=== PATIENT | female | born 1985 | race Caucasian/White ===

== ENCOUNTER 2020-01-11 17:05 | Emergency (ER) | payer OTHER ==
[~2020-01-11] VITALS: Ht 162.6 cm; Wt 60.3 kg
[2020-01-11 17:09] VITALS: BP 124/77; Ht 162.6 cm; Wt 60.3 kg
== END 2020-01-11 17:52 | disposition left against medical advice (07) ==
LOC: ED 17:05
DX: R07.89 Other chest pain (principal); Z88.2 Allergy status to sulfonamides
CPT/HCPCS: 82962

== ENCOUNTER 2020-01-14 22:13 | Emergency (ER) | payer OTHER ==
[~2020-01-14] VITALS: Ht 162.6 cm; Wt 59.0 kg
[2020-01-14 22:17] VITALS: Ht 162.6 cm; Wt 59.0 kg
[2020-01-14 23:00] VITALS: BP 112/83
== END 2020-01-14 23:00 | disposition other institution (70) ==
LOC: ED 22:13
DX: Z02.89 Encounter for other administrative examinations (principal)

== ENCOUNTER 2020-01-20 20:53 | Emergency (ER) | payer OTHER ==
[~2020-01-20] VITALS: Ht 162.6 cm; Wt 61.2 kg
[2020-01-20 20:56] VITALS: BP 123/80; Ht 162.6 cm; Wt 61.2 kg
== END 2020-01-20 21:46 | disposition left against medical advice (07) ==
LOC: ED 20:53
DX: Z53.21 Procedure and treatment not carried out due to patient leaving prior to being seen by health care provider (principal)

== ENCOUNTER 2020-01-22 13:16 | Emergency (ER) | payer OTHER ==
[~2020-01-22] VITALS: Ht 165.1 cm; Wt 61.2 kg
[2020-01-22 13:45] VITALS: Ht 165.1 cm; Wt 61.2 kg
[2020-01-22 14:08] VITALS: BP 134/64
[2020-01-22 14:22] LABS: BASOPHIL % 0.1 % (0-2); PLATELET COUNT 290 x10^3mcL (130-400); RED CELL DISTRIBUTION WIDTH 13.3 % (11.5-14.5)
[2020-01-22 14:34] LABS: CALCIUM 8.9 mg/dL (8.5-10.1); CARBON DIOXIDE 30.1 mmol/L (21-32); CHLORIDE SERUM 106 mmol/L (98-107); CREATININE SERUM 0.7 mg/dL (0.6-1.0); GFR1 > 60 mL/min; GLUCOSE SERUM 68 mg/dL (74-106); POTASSIUM SERUM 4.2 mmol/L (3.5-5.1); SODIUM SERUM 139 mmol/L (136-145)
[2020-01-22 14:38] LABS: ALKALINE PHOSPHATASE 57 U/L (46-116); ALT/SGPT 14 U/L (14-59); AST/SGOT 15 U/L (15-37); BILIRUBIN TOTAL 0.1 mg/dL (0.20-1.00); CHOLESTEROL 139 mg/dL (<200); PHOSPHOROUS 3.4 mg/dL (2.5-4.9); TOTAL PROTEIN, SERUM 6.7 g/dL (6.4-8.2); URIC ACID 3.6 mg/dL (2.6-6.0)
[2020-01-22 14:39] LABS: HDL CHOLESTEROL 34 mg/dL (40-60)
== END 2020-01-22 14:30 | disposition left against medical advice (07) ==
LOC: ED 13:16
PROVIDERS: Emergency Medicine
DX: T67.5XXA Heat exhaustion, unspecified, initial encounter (principal); Z88.8 Allergy status to other drugs, medicaments and biological substances; X58.XXXA Exposure to other specified factors, initial encounter; Y93.89 Activity, other specified; Y92.89 Other specified places as the place of occurrence of the external cause; Y99.8 Other external cause status
CPT/HCPCS: J7030; Q0092